=== PATIENT | male | born 1965 | race Asian ===

== ENCOUNTER 2022-05-19 11:06 | Emergency (ER) | payer BC ==
[~2022-05-19] VITALS: Ht 165.1 cm; Wt 56.8 kg
[2022-05-19 12:34] VITALS: BP 168/93
== END 2022-05-19 12:49 | disposition home or self-care (01) ==
LOC: M ED 11:06
DX: H61.21 Impacted cerumen, right ear (principal); M32.9 Systemic lupus erythematosus, unspecified

== ENCOUNTER 2022-05-23 11:27 | Emergency (ER) | payer BC ==
[~2022-05-23] VITALS: Ht 165.1 cm; Wt 56.8 kg
[2022-05-23 11:27] VITALS: BP 148/81
== END 2022-05-23 15:44 | disposition left against medical advice (07) ==
LOC: M ED 11:27
DX: Z53.21 Procedure and treatment not carried out due to patient leaving prior to being seen by health care provider (principal)

== ENCOUNTER 2022-05-25 10:39 | Emergency (ER) | payer BC ==
[~2022-05-25] VITALS: Ht 165.1 cm; Wt 52.5 kg
[2022-05-25] MEDS ORDERED: FLON1SPR NARES (12:21)
[2022-05-25] MEDS ORDERED: AMOX875T2 PO (12:21)
[2022-05-25 12:33] VITALS: BP 138/89
== END 2022-05-25 12:35 | disposition home or self-care (01) ==
LOC: M ED 10:39
DX: H66.001 Acute suppurative otitis media without spontaneous rupture of ear drum, right ear (principal)